=== PATIENT | female | born 1970 | race Caucasian/White ===

== ENCOUNTER 2018-02-17 10:00 | Emergency (ER) | payer MEDICAID, OTHER ==
[2018-02-17 10:23] VITALS: BP 146/77
[2018-02-17] MEDS ORDERED: Ketorolac INJ* 60 MG/2 ML VIAL IM ONE (10:32)
--- NOTE | 2018-02-17 10:34 | UC ---
Back Pain HPI - HPI Summary HPI Summary: Pt presents with lower back pain that began last night. She tells me that she was sitting in the chair watching tv and went to get up - felt a pull in her lower back. Has had stabbing pain all along lower back since that time. Has taken ibuprofen with mild relief. No hx of back disorders or pain. Denies fever , chills, numbness, tingling, radiation of pain, dysuria, saddle anesthesia, or loss of bowel/bladder control. - History of Current Complaint Chief Complaint: UCBackPain Stated Complaint: lower back pain Time Seen by Provider: 02/17/18 10:26 Hx Obtained From: Patient Hx Last Menstrual Period: depoprovera Onset/Duration: Sudden Onset Timing: Constant Severity Initially: Severe Severity Currently: Severe Pain Intensity: 8 Pain Scale Used: 0-10 Numeric Character: Sharp, Aching Aggravating Factor(s): Movement, Lifting Alleviating Factor(s): Rest, Position - Allergies/Home Medications Allergies/Adverse Reactions: Allergies Allergy/AdvReac Type Severity Reaction Status Date / Time No Known Allergies Allergy Verified 02/17/18 10:23 Home Medications: Home Medications Naproxen Sodium [Aleve] 220 mg PO 02/17/18 [History] PMH/Surg Hx/FS Hx/Imm Hx Previously Healthy: Yes - Surgical History Surgical History: Yes Surgery Procedure, Year, and Place: bilat carpal tunnel repair, knee surgery - Family History Known Family History: Positive: None - Social History Occupation: Employed Full-time Lives: With Family Alcohol Use: Rare Substance Use Type: None Smoking Status (MU): Former Smoker Review of Systems Constitutional: Negative Skin: Negative Respiratory: Negative Cardiovascular: Negative Gastrointestinal: Negative Genitourinary: Negative Neurovascular: Negative Musculoskeletal: Other: - LBP Neurological: Negative Psychological: Negative All Other Systems Reviewed And Are Negative: Yes Physical Exam - Summary Physical Exam Summary: GENERAL: NAD. WDWN. No pain distress. SKIN: No rashes, sores, ulcers, masses, lesions. NECK: Supple. FROM. Nontender. No lymphadenopathy. CHEST: CTAB. No r/r/w. No accessory muscle use. Breathing comfortably and in no distress. CV: RRR. Without m/r/g. Pulses intact. Brisk cap refill. MSK: TTP over lumbar paraspinal muscles. Pain with flexion and extension of spine. Positive SLR b/l. Strength 5/5 B/L LEs including dorsiflexion and plantar flexion. FROM B/L LEs. No edema. NEURO: Alert. CN II-XII grossly intact. Sensations intact B/L LEs L3-S1. PSYCH: Age appropriate behavior. Triage Information Reviewed: Yes Vital Signs: Initial Vital Signs Temp 98.0 F 02/17/18 10:18 Pulse 97 02/17/18 10:18 Resp 18 02/17/18 10:18 BP 146/77 02/17/18 10:18 Pulse Ox 99 02/17/18 10:18 Back Pain Course/Dx - Course Course Of Treatment: UA negative. Toradol IM given in clinic. Rx for flexeril and advised to do stretches as indicated. - Differential Dx/Diagnosis Provider Diagnoses: Low back spasm Discharge - Sign-Out/Discharge Documenting (check all that apply): Discharge - Discharge Plan Condition: Stable Disposition: HOME Prescriptions: Cyclobenzaprine TAB* [Flexeril 10 MG TAB*] 10 mg PO BID PRN #10 tab PRN Reason: Pain Patient Education Materials: Muscle Spasm (ED), Lower Back Exercises (ED) Forms: *Work Release Referrals: Jes Jade PA [Primary Care Provider] - Additional Instructions: If you develop a fever, shortness of breath, chest pain, new or worsening symptoms - please call your PCP or go to the ED. Your blood pressure was high at todays visit. Please see your primary provider within 4 weeks for recheck and re-evaluation. - Billing Disposition and Condition Condition: STABLE Disposition: HOME
== END 2018-02-17 10:57 | disposition home or self-care (01) ==
LOC: UCCORT 10:00
DX: M62.830 Muscle spasm of back (principal); Z87.891 Personal history of nicotine dependence
CPT/HCPCS: 81003; 99212; G0463; J1885

== ENCOUNTER 2018-08-25 09:06 | Emergency (ER) | payer OTHER ==
[2018-08-25 10:20] VITALS: BP 139/84
--- NOTE | 2018-08-25 11:02 | RAD ---
Indication: Cough, fever. 2 views of the chest demonstrate no mediastinal shift. Heart is of normal size and configuration. Mandel are clear. No alveolar consolidation are noted. Comparison is made with previous exam dated August 05, 2012. IMPRESSION: No active cardiopulmonary disease is noted.
[2018-08-25] MEDS ORDERED: Ipratropium 0.5MG/2.5ML NEB* 0.5 MG/2.5 ML NEB.SOLN INH ONE (11:19)
[2018-08-25] MEDS ORDERED: Albuterol 2.5 MG/3 ML NEB.SOL* (0.083%) INH ONE (11:19)
--- NOTE | 2018-08-25 11:22 | UC ---
Respiratory Complaint HPI - HPI Summary HPI Summary: The patient is a 48-year-old female with a one-week history of respiratory symptoms. Her symptoms initially started with some nasal congestion sinus pressure and postnasal drip. Her symptoms rapidly progressed to cough which has been nonproductive. She has had a low-grade temperature as well as chills. He has muscle aches. At times she gets to coughing so badly that she has chest and back pain. At times she feels as though she cannot catch her breath. She has some mild chest tightness. She has had no nausea or vomiting. Has had a little bit of diarrhea. - History of Current Complaint Chief Complaint: UCRespiratory Stated Complaint: CONGESTION,COUGH,BACK PAIN Time Seen by Provider: 08/25/18 10:38 Hx Obtained From: Patient Hx Last Menstrual Period: IS ON DEPO , DOES NOT HAVE REG PERIODS Onset/Duration: Gradual Onset, Lasting Days Timing: Constant Severity Initially: Mild Severity Currently: Mild Pain Intensity: 8 - WHEN SHE HAS A COUGHING SPELL Pain Scale Used: 0-10 Numeric Character: Cough: Nonproductive Aggravating Factors: Nothing Associated Signs And Symptoms: Positive: Nasal Congestion, Sinus Discomfort - Allergies/Home Medications Allergies/Adverse Reactions: Allergies Allergy/AdvReac Type Severity Reaction Status Date / Time No Known Allergies Allergy Verified 08/25/18 10:10 Home Medications: Home Medications D-Methorphan/PE/Acetaminophen [Gnp Day Time Cold/Flu Rel] 1 liq PO PRN 08/25/18 [History] Dm/Acetaminophen/Doxylamine [Night Cold-Flu Relief Liq Gel] 1 each PO PRN [History] Phenylephrine/Dm/Acetaminop/GG [Tylenol Cold-Flu Severe Caplet] 1 each PO PRN [History] medroxyPROGESTERone ACETATE* [DEPO-Provera] 150 mg IM 08/25/18 [History] PMH/Surg Hx/FS Hx/Imm Hx Previously Healthy: Yes Respiratory History: Bronchitis, Pneumonia - Surgical History Surgical History: Yes Surgery Procedure, Year, and Place: bilat carpal tunnel repair, knee surgery - Family History Known Family History: Positive: Cardiac Disease, Hypertension - Social History Alcohol Use: Rare Substance Use Type: None Smoking Status (MU): Light Every Day Tobacco Smoker Type: Cigarettes Amount Used/How Often: 1/2 PPD Cessation Counseling: Patient Advised to Stop Review of Systems Constitutional: Fever, Chills, Fatigue Skin: Negative Eyes: Negative ENT: Nasal Discharge Respiratory: Shortness Of Breath - AT TIMES, Cough Cardiovascular: Negative Gastrointestinal: Negative Genitourinary: Negative Motor: Negative Neurovascular: Negative Musculoskeletal: Negative Neurological: Negative Psychological: Negative Is Patient Immunocompromised?: No All Other Systems Reviewed And Are Negative: Yes Physical Exam Triage Information Reviewed: Yes Appearance: Well-Appearing, No Pain Distress, Well-Nourished Vital Signs: Initial Vital Signs Temp 98 F 08/25/18 10:13 Pulse 94 08/25/18 10:13 Resp 16 08/25/18 10:13 BP 139/84 08/25/18 10:13 Pulse Ox 98 08/25/18 10:13 Vital Signs Reviewed: Yes Eyes: Positive: Conjunctiva Clear ENT: Positive: Hearing grossly normal, Pharynx normal, Nasal congestion, TMs normal. Negative: Nasal drainage, Tonsillar swelling, Tonsillar exudate, Trismus, Muffled voice, Hoarse voice, Dental tenderness, Sinus tenderness, Uvula midline Neck: Positive: Supple, Nontender, No Lymphadenopathy Respiratory: Positive: Normal breath sounds, No accessory muscle use, Decreased breath sounds Cardiovascular: Positive: RRR, No Murmur Abdomen Description: Positive: Soft Neurological: Positive: Alert Psychological Exam: Normal Skin Exam: Normal UC Diagnostic Evaluation - Laboratory O2 Sat by Pulse Oximetry: 98 Re-Evaluation - Re-Evaluation First Eval Re-Evaluation Time: 12:30 Change: Improved - markedly improved after neb PEFR now 210 Respiratory Course/Dx - Differential Dx/Diagnosis Provider Diagnoses: acute bronchitis with bronchospasm. smoker. elevated BP without dx of HTN Discharge - Sign-Out/Discharge Documenting (check all that apply): Patient Departure All imaging exams completed and their final reports reviewed: Yes - Discharge Plan Condition: Stable Disposition: HOME Patient Education Materials: Acute Bronchitis (ED) Forms: *Work Release Additional Instructions: you need to stop smoking you need a primary care provider to follow you for your breathing as well as to follow your BP recheck for worsening symptoms return here if not better in 4 days use your inhaler 2 puffs 4x day for one week - Billing Disposition and Condition Condition: STABLE Disposition: Home
[2018-08-25] MEDS ORDERED: predniSONE TAB* 20 MG PO ONE (12:29)
[2018-08-25] MEDS ORDERED: Albuterol HFA INHALER* 8 gm MDI INH ONE (12:29)
== END 2018-08-25 12:49 | disposition home or self-care (01) ==
LOC: UCCORT 09:06
DX: J20.9 Acute bronchitis, unspecified (principal); R03.0 Elevated blood-pressure reading, without diagnosis of hypertension; F17.210 Nicotine dependence, cigarettes, uncomplicated
CPT/HCPCS: 71046; 93005; 99213; A9270-GY; G0463; J7512

== ENCOUNTER 2018-11-22 14:10 | Emergency (ER) | payer OTHER ==
--- OUTSIDE RECORDS SUMMARY | 2018-11-22 15:45 | XMS REPORT | Continuity of Care Document ---
:1970 External Reference #:[id number] Author Name Yolanda Santana NP Address [address] [place] [id number] Care Team Providers Name Role Phone No Primary Care Physician Unavailable Payers Type Date Identification Numbers Payment Provider Subscriber Effective: 2018 Policy Number: [id number] [facility] Claudia Molinaner PayID: [id number] [address] [place] [address] Effective: 2018 Policy Number: [id number] Medicaid -[place] Claudia Molinaner PayID: [id number] [address] [place] [address] Advance Directives Description No Information Available Problems Date Description Provider Status Onset: 10/25/2017 Gynecologic examination Yolanda Santana NP Active Onset: 10/25/2017 Contraception care education Yolanda Santana NP Active Family History Date Family Member(s) Problem(s) Comments General Breast Cancer MGM, sister Father Alive Father Diabetes Father heart problems Mother Alive Mother No Current Problems Social History Type Date Description Comments Sex Female Education Highest level completed, 12th grade Marital Status Legal Status: Never Tobacco Use Start: Unknown End: Former Cigar Smoker Unknown Smoking Status Reviewed: 11/21/18 Former Cigar Smoker Tobacco Use Reviewed: 03/28/18 Never Smoked A Pipe Tobacco Use Reviewed: 03/28/18 Never Used Smokeless Tobacco ETOH Use Currently consumes alcohol Tobacco Use Start: Unknown pt smoking 1-2 cigarettes per day as of 11/21/18 Recreational Drug Use Denies Drug Use Recreational Drug Use Teaching provided regarding Naloxone/Narcan Training Available At [facility] Tattoo/Piercing Tattoo [place] Condom Use Never UNKNOWN 03/28/2018 Current E-Cigarette user Allergies, Adverse Reactions, Alerts Description No Known Drug Allergies Medications Medication Date Status Form Strength Qnty SIG Indications Ordering Provider Depo-Provera 11/21/ Active Suspension 150mg/ml 1ml intramuscular Z30.42 In [facility] 2018 every 12 weeks MD barrett Carty Macrobid 09/08/ Hx Capsules 100mg 14cap one capsule by N39.0 Camila Knapp 2018 - s mouth twice a Angelchner, 11/21/ day x 7 days [employer] [employer] 2019 Nicotine 01/10/ Hx Lozenges 4mg 96uni week 1 to 6 F17.200 In [facility] 2018 - ts one lozenge MD Carloz 09/08/ every 1-2 2018 hours do not use more than 20 lozenges in a day Depo-Provera 01/10/ Hx Suspension 150mg/ml 1ml intramuscular Z30.42 In [facility] 2017 - every 12 weeks MD Carloz barrett next 2018 annual Depo-Provera 10/25/ Hx Suspension 150mg/ml 1ml intramuscular Z30.013 In [facility] 2016 - every 12 weeks MD Carloz barrett next 2017 annual Nexplanon / Hx Unknown 0000 - 2016 Medications Administered in Office Medication Date Status Form Strength Qnty SIG Indications Ordering Provider J-Depo Provera Administered Injection Yolanda Injection 019 RADHA Santana J-Depo Provera Administered Injection Jacinda Valencia Injection 018 J-Depo Provera Administered Injection Jacinda Valenica Injection 018 J-Depo Provera Administered Injection Jacinda Valencia Injection 018 J-Depo Provera Administered Injection Yolanda Injection 018 RADHA Santana J-Depo Provera Administered Injection Yolanda Injection 017 RADHA Santana Nexplanon Administered Injection Erick Device 014 RADHA Zheng Immunizations CPT Code Status Date Vaccine Lot # [id number] Given 10/17/2014 J-Influenza Virus Split 3 Yrs And Above For Intramuscular Use Vital Signs Date Vital Result Comment 11/21/2018 8:34am BP Systolic 140 mmHg BP Diastolic 88 mmHg Weight 198.00 lb 09/08/2018 11:19am BP Systolic 123 mmHg BP Diastolic 80 mmHg Height 64.5 inches 5'4.50" Weight 200.00 lb BMI (Body Mass Index) 33.8 kg/m2 09/05/2018 9:28am BP Systolic 124 mmHg BP Diastolic 82 mmHg Weight 200.00 lb 06/14/2018 8:49am BP Systolic 124 mmHg BP Diastolic 80 mmHg Weight 204.00 lb 03/28/2018 8:56am BP Systolic 130 mmHg BP Diastolic 82 mmHg Weight 213.00 lb 01/10/2018 8:13am BP Systolic 123 mmHg BP Diastolic 80 mmHg Height 64.5 inches 5'4.50" Weight 226.00 lb BMI (Body Mass Index) 38.2 kg/m2 10/25/2017 10:33am BP Systolic 124 mmHg BP Diastolic 82 mmHg Height 64.5 inches 5'4.50" Weight 220.00 lb BMI (Body Mass Index) 37.2 kg/m2 Results Test Date Facility Test Result H/L Range Note Wet Prep.... 11/21/2018 [facility] WBC Smear neg Clue Cells Vag Fluid Wet Prep neg Lexy Wet Prep neg Lactobacillus Wet Prep many Whiff Wet Prep neg Bacteria Wet Prep na PH Wet Prep 4.5 Misc Other Test no tric Culture,Urine,Voided 09/08/2018 [facility] URINE-URINE Preliminary Report SEE NOTE 1 Organism #1 SEE NOTE Abnormal 2 Vitek GN24 Susceptibility 09/08/2018 [facility] Amoxicillin/Clavulanic Acid I ( 16) Org 1 Ampicillin R (>=32) Ampicillin/Sulbact R (>=32) Cefepime S (<=1) Ceftazidime S (<=1) Ceftriaxone S (<=1) Ciprofloxacin S (<=0.25) Ertapenem S (<=0.5) Gentamicin S (<=1) Imipenem S (<=0.25) Levofloxacin S (<=0.12) Nitrofurantoin S (<=16) Piperacillin/Tazobactam S (<=4) Tobramycin S (<=1) Trimethoprim/Sulfa S (<=20) 3 Chlamydia/N 09/08/[address] [facility] [address],Rna,Tma,Urogenital NOT DETECTED Not Detected 4 Gonorroeae Rna Tma Urogenit GC Rna,Tma,Urogen NOT DETECTED Not Detected 5 Urinalysis DIP Only.... 09/08/2018 [facility] Urine Leukocyte Esterase QN + Urine Nitrite QN N Urine Blood +++ Urine PH 5.0 Urine Protein Random N Urine Ketone Random N Urine Glucose QN Random N Thinprep Tis And HPV Rna HR E6/E7 Tma 10/25/2017 [facility] Results SEE NOTE 6 1 PRESUMPTIVE ESCHERICHIA COLI 50,000 - 100,000 CFU/ML SUSCEPTIBILITY TEST REPORT TO FOLLOW. 2 ESCHERICHIA COLI 50,000 - 100,000 CFU/ML 3 ( )=MINIMUM INHIBITORY CONCENTRATION IN MCG/ML 4 This test was performed using the APTIMA COMBO2(R) Assay (GEN-PROBE(R). The analytical performance characteristics of this assay, when used to test SurePath(R) specimens have been determined by [employer]. 5 This test was performed using the APTIMA COMBO2(R) Assay (GEN-PROBE(R). The analytical performance characteristics of this assay, when used to test SurePath(R) specimens have been determined by [employer]. 6 GYNECOLOGICAL CYTOLOGY REPORT THINPREP TIS AND HPV mRNA E6/E7 Thinprep-TIS REPORT STATUS: FINAL CLINICAL INFORMATION: Information not provided SLIDES / SOURCE: 2 / Information not provided STATEMENT OF ADEQUACY: Satisfactory for evaluation. Endocervical/transformation zone component present. INTERPRETATION/RESULT: Negative for intraepithelial lesion or malignancy. COMMENT: This case could not be evaluated with computer assisted technology. The slide was manually screened according to routine procedures. CAD MANAGER: SEVEN YOUNG(ASCP) For informational Purposes: All cytology specimens are processed and screened at [facility] [address] [place] [address] HPV mRNA E6/E7 HPV mRNA E6E7 Not Detected REFERENCE RANGE: NOT DETECTED This test was performed using the APTIMA HPV Assay ([employer] This assay detects E6/E7 viral messenger RNA (mRNA) from 14 high-risk HPV types (16,18,31,33,35,39,45,51,52,56,58,59,66,68). Procedures Date Code Description Status 11/21/2018 02349 Therapeutic, Prophylactic Or Diagnostic Injection Subq/Im Completed 09/05/2018 69196 Therapeutic, Prophylactic Or Diagnostic Injection Subq/Im Completed 06/14/2018 57322 Therapeutic, Prophylactic Or Diagnostic Injection Subq/Im Completed 03/28/2018 92658 Therapeutic, Prophylactic Or Diagnostic Injection Subq/Im Completed 01/10/2018 20608 Therapeutic, Prophylactic Or Diagnostic Injection Subq/Im Completed 10/25/2017 67400 Therapeutic, Prophylactic Or Diagnostic Injection Subq/Im Completed 10/25/2017 36564 Removal, Non-Biodegradable Drug Delivery Implant Completed 10/17/2014 47150 Insertion, Non-Biodegradable Drug Delivery Implant Completed Encounters Description No Information Available Plan of Treatment Future Appointment(s):02/08/2019 8:30 am - [facility] - Yolanda Santana, [id number] Encounter for gynecological examination (general) ( routine) without abnormal findingsNew Labs:Lipid,Glucose,CBC,A1c, Ordered: 11/21T4 & TSH, Ordered: 11/21/18Comments:Reviewed healthy diet, exercise and safety with patient who states understanding.Counseled on Preventive , STI Awareness, Seat Belt Use, and Self Breast ExamFollow up:F/u in one year for annual. Sooner prn any concerns.Z30.42 Encounter for surveillance of injectable contraceptiveNew Medication:Depo-Provera 150 mg/ml - intramuscular every 12 weeks til next qlyjsdL21.31 Encounter for screening mammogram for malignant neoplasm of breastNew Xrays:Mammography, Bilateral, Ordered: 11/21/18Z72.0 Tobacco useComments:Continue you current method of weaning from nicotine habit, Congratulations on all your hard work
--- NOTE | 2018-11-22 17:18 | UC ---
Truncal Trauma HPI - HPI Summary HPI Summary: Pt reports that she was walking about two months ago and left uper leg "just gave out" and pt heard a "pop". Pt has "been dealing withthe pain" since until today, she agian, was walking and had sudden onset of left upper leg/femur pain that was sudden, very painful and reports feeling of upper leg "giving out" in center of thigh. - History Of Current Complaint Chief Complaint: UCLowerExtremity Stated Complaint: LEFT HIP/KNEE PAIN Time Seen by Provider: 11/22/18 16:49 Hx Obtained From: Patient Hx Last Menstrual Period: ON DEPO, DOES NOT HAVE REG PERIODS ?: No Onset/Duration: Sudden Onset, Lasting Weeks, Still Present Onset Of Pain: Immediate Severity Initially: Moderate Severity Currently: Moderate Pain Intensity: 8 Mechanism Of Injury: Unknown Aggravating Factor(s): Movement Alleviating factor(s): Rest Associated Signs And Symptoms: Positive: Negative - Allergies/Home Medications Allergies/Adverse Reactions: Allergies Allergy/AdvReac Type Severity Reaction Status Date / Time No Known Allergies Allergy Verified 11/22/18 15:53 PMH/Surg Hx/FS Hx/Imm Hx Previously Healthy: Yes - Surgical History Surgical History: Yes Surgery Procedure, Year, and Place: bilat carpal tunnel repair, knee surgery - Family History Known Family History: Positive: Cardiac Disease, Hypertension - Social History Occupation: Employed Full-time Lives: With Family Alcohol Use: Rare Substance Use Type: None Smoking Status (MU): Light Every Day Tobacco Smoker Type: Cigarettes Amount Used/How Often: 1/2 PPD Have You Smoked in the Last Year: Yes Review of Systems All Other Systems Reviewed And Are Negative: Yes Constitutional: Positive: Negative Skin: Positive: Bruising Eyes: Positive: Negative ENT: Positive: Negative Respiratory: Positive: Negative Cardiovascular: Positive: Negative Gastrointestinal: Positive: Negative Genitourinary: Positive: Negative Motor: Positive: Negative Neurovascular: Positive: Negative Musculoskeletal: Positive: Myalgia Neurological: Positive: Negative Psychological: Positive: Negative Is Patient Immunocompromised?: No Physical Exam Triage Information Reviewed: Yes Appearance: Well-Appearing Vital Signs: Initial Vital Signs Temp 98 F 11/22/18 15:53 Pulse 75 11/22/18 15:53 Resp 18 11/22/18 15:53 BP 130/64 11/22/18 15:53 Pulse Ox 100 11/22/18 15:53 Vital Signs Reviewed: Yes Eye Exam: Normal ENT Exam: Normal Dental Exam: Normal Neck exam: Normal Respiratory Exam: Normal Cardiovascular Exam: Normal Abdominal Exam: Normal Abdomen Description: Positive: Nontender, No Organomegaly Neurological Exam: Normal Psychological Exam: Normal Skin Exam: Other - three small light colored bruises to right lower trunk betwee rib #12 and iliac crest. Diagnostics - Radiology No standard instances Radiology Interpretation Completed By: ED Physician - negative for fracture or lesion Truncal Trauma Course/Dx - Differential Dx/Diagnosis Differential Diagnosis/HQI/PQRI: Other - left leg pain Provider Diagnosis: Left leg pain Discharge - Sign-Out/Discharge Documenting (check all that apply): Patient Departure All imaging exams completed and their final reports reviewed: Yes - Discharge Plan Condition: Stable Disposition: HOME Patient Education Materials: Leg Pain (ED) Forms: *Work Release Referrals: Khushbu Riggs MD [Medical Doctor] - As Soon As Possible Jes Jade PA [Primary Care Provider] - As Soon As Possible - Billing Disposition and Condition Condition: STABLE Disposition: Home
[2018-11-22 18:32] VITALS: BP 138/88
== END 2018-11-22 18:32 | disposition home or self-care (01) ==
LOC: UCCORT 14:10
DX: M79.605 Pain in left leg (principal); F17.210 Nicotine dependence, cigarettes, uncomplicated
CPT/HCPCS: 99211; G0463